=== PATIENT | male | born 1990 | race Caucasian/White ===

== ENCOUNTER 2020-09-20 15:00 | Emergency (ER) | payer MEDICAID ==
[~2020-09-20] VITALS: Ht 180.3 cm; Wt 86.4 kg
[2020-09-20 15:29] VITALS: BP 134/78
[2020-09-20] MEDS ORDERED: SULF1TAB45 PO (16:02)
[2020-09-20] MEDS ORDERED: CEPH250T PO (16:02)
[2020-09-20] MEDS ORDERED: LIDOcaine 1% W/epiNEPHrine 1:200,000 10ml vial IJ ONE (16:05)
== END 2020-09-20 16:35 | disposition home or self-care (01) ==
LOC: ER 15:03 → EDBD 15:03 → ER 16:35
DX: L02.413 Cutaneous abscess of right upper limb (principal); F17.200 Nicotine dependence, unspecified, uncomplicated; Z79.2 Long term (current) use of antibiotics
CPT/HCPCS: 10060; 99283